=== PATIENT | male | born 1995 | race Caucasian/White ===

== ENCOUNTER 2018-12-02 20:58 | Emergency (ER) | payer OTHER ==
[2018-12-02 21:14] VITALS: BP 127/80
--- NOTE | 2018-12-02 21:25 | UC ---
Upper Extremity HPI - HPI Summary HPI Summary: 1. Pt c/o right hand pain s/p getting right hand shut in door two days ago. 2. Pt c/o left forearm pain s/p slipping on ice just prior to coming to clinic - History of Current Complaint Chief Complaint: UCUpperExtremity Stated Complaint: ARM INJURY Time Seen by Provider: 12/02/18 21:01 Hx Obtained From: Patient ?: No Onset/Duration: Sudden Onset, Lasting Hours, Lasting Days, Still Present Severity Initially: Moderate Severity Currently: Moderate Pain Intensity: 7 Location Of Pain: Is Discrete @ - left forearm proximal to elbow Aggravating Factor(s): Movement, Lifting, Flexion Alleviating Factor(s): Rest Associated Signs And Symptoms: Positive: Swelling Related History: Dominant Hand Right - Risk Factors Non-Orthopedic Risk Factor: Negative DVT Risk Factors: Negative Septic Arthritis Risk Factor: Negative - Allergies/Home Medications Allergies/Adverse Reactions: Allergies Allergy/AdvReac Type Severity Reaction Status Date / Time cefprozil [From Cefzil] Allergy Severe unk Verified 12/02/18 21:14 Penicillins Allergy Severe unk Verified 12/02/18 21:15 Home Medications: Home Medications NK [No Home Medications Reported] 12/02/18 [History Confirmed 12/02/18] PMH/Surg Hx/FS Hx/Imm Hx Previously Healthy: Yes - Surgical History Surgical History: None - Family History Known Family History: Positive: Cardiac Disease - Social History Occupation: Student Alcohol Use: None Substance Use Type: None Smoking Status (MU): Never Smoked Tobacco Have You Smoked in the Last Year: No - Immunization History Vaccination Up to Date: Yes Review of Systems All Other Systems Reviewed And Are Negative: Yes Constitutional: Positive: Negative Skin: Positive: Bruising - right hand faint bruises Eyes: Positive: Negative ENT: Positive: Negative Respiratory: Positive: Negative Cardiovascular: Positive: Negative Gastrointestinal: Positive: Negative Genitourinary: Positive: Negative Motor: Positive: Decreased ROM - right hand c/o pain with ROM Neurovascular: Positive: Negative Musculoskeletal: Positive: Arthralgia, Decreased ROM Neurological: Positive: Negative Psychological: Positive: Negative Is Patient Immunocompromised?: No Physical Exam Triage Information Reviewed: Yes Appearance: Well-Appearing Vital Signs: Initial Vital Signs Temp 99.7 F 12/02/18 21:09 Pulse 88 12/02/18 21:09 Resp 16 12/02/18 21:09 BP 127/80 12/02/18 21:09 Pulse Ox 100 12/02/18 21:09 Vital Signs Reviewed: Yes Eye Exam: Normal Eyes: Positive: Other: - strabismus- Dental Exam: Normal Neck exam: Normal Respiratory Exam: Normal Cardiovascular Exam: Normal Musculoskeletal Exam: Normal Neurological Exam: Normal Psychological Exam: Normal Skin Exam: Other - left forearm proximal swelling Upper Extremity Course/Dx - Differential Dx/Diagnosis Differential Diagnosis/HQI/PQRI: Contusion, Fracture (Closed) Provider Diagnosis: Contusion of right hand, Contusion of left forearm Discharge - Sign-Out/Discharge Documenting (check all that apply): Patient Departure All imaging exams completed and their final reports reviewed: No Studies - Discharge Plan Condition: Stable Disposition: HOME Patient Education Materials: Contusion in Adults (ED), R.I.C.E. Treatment (ED) , Crush Injury (ED) Referrals: [facility] [Outside] - If Needed No Primary Care Phys,NOPCP [Primary Care Provider] - - Billing Disposition and Condition Condition: STABLE Disposition: Home
== END 2018-12-02 21:48 | disposition home or self-care (01) ==
LOC: UCEAST 20:58
DX: S60.221A Contusion of right hand, initial encounter (principal); S50.12XA Contusion of left forearm, initial encounter; Z88.0 Allergy status to penicillin; Z88.1 Allergy status to other antibiotic agents; W00.0XXA Fall on same level due to ice and snow, initial encounter; Y92.9 Unspecified place or not applicable
CPT/HCPCS: 99201; G0463